=== PATIENT | male | born 1970 | race Caucasian/White ===

== ENCOUNTER 2020-12-29 12:07 | Emergency (ER) | payer OTHER ==
[~2020-12-29] VITALS: Ht 177.8 cm; Wt 99.8 kg
[2020-12-29] MEDS ORDERED: PERCOCET 7.5-31 EAC1 PO (12:17)
[2020-12-29] MEDS ORDERED: CEPHALEXIN500 MG PO (13:59)
[2020-12-29 14:13] VITALS: BP 111/70
== END 2020-12-29 14:14 | disposition home or self-care (01) ==
LOC: M.ERS 12:07
DX: S61.213A Laceration without foreign body of left middle finger without damage to nail, initial encounter (principal); Z79.899 Other long term (current) drug therapy; W29.8XXA Contact with other powered hand tools and household machinery, initial encounter; Y93.89 Activity, other specified; Y92.89 Other specified places as the place of occurrence of the external cause; Y99.8 Other external cause status